=== PATIENT | male | born 1975 | race Caucasian/White ===

== ENCOUNTER → 2016-09-23 | Outpatient (CLI) | payer BC ==
[~2016-09-23] VITALS: Ht 167.6 cm; Wt 72.6 kg
[~2016-09-23] MED LIST: NS 1,000 ML IV SCH; OMEP40CA2 PO
--- NOTE | 2016-09-23 14:57 | ROOR ---
Patient Name: Naif Rodriguez Procedure Date: 09/23/2016 2:41 PM Date of : 1975 Age: 41 Room: [facility] Gender: Male Note Status: Finalized Procedure: Upper GI endoscopy Indications: Dysphagia, Heartburn Providers: Napoleon JOSHI MD Referring MD: [facility] [place] [facility] Provider: Medicines: Monitored Anesthesia Care Complications: No immediate complications. Procedure: Pre-Anesthesia Assessment: - The heart rate, respiratory rate, oxygen saturations, blood pressure, adequacy of pulmonary ventilation, and response to care were monitored throughout the procedure. The Endoscope was introduced through the mouth, and advanced to the second part of duodenum. The upper GI endoscopy was accomplished without difficulty. The patient tolerated the procedure well. Findings: A non-obstructing Schatzki ring (acquired) was found at the gastroesophageal junction. A TTS dilator was passed through the scope. Dilation with an 18-19-20 mm balloon dilator was performed to 19 mm. The dilation site was examined and showed complete resolution of luminal narrowing. This was biopsied with a cold forceps for evaluation of eosinophilic esophagitis. The entire examined stomach was normal. The examined duodenum was normal. Impression: - Esophagus: Non-obstructing Schatzki ring, otherwise normal. Dilated to 19 mm with complete resolution. - Mid esophagus Biopsied for r/o Eosinophilic esophagitis. - Normal stomach. - Normal examined duodenum. Recommendation: - Continue present medications. - Await pathology results. - Telephone endoscopist for pathology results in 2 weeks. - Observe patient's clinical course. Napoleon Joshi MD Napoleon JOSHI MD 09/23/2016 2:57:15 PM This report has been signed electronically. Number of Addenda: 0 Note Initiated On: 09/23/2016 2:41 PM Estimated Blood Loss: Estimated blood loss: none.
[2016-09-23 15:27] VITALS: BP 127/64
== END ==
LOC: M OPP 11:28
PROVIDERS: ATTEND Internal Medicine Gastroenterology
DX: R13.10 Dysphagia, unspecified (principal); R12 Heartburn; K22.2 Esophageal obstruction; Z79.899 Other long term (current) drug therapy

== ENCOUNTER → 2017-05-14 | Outpatient (CLI) | payer BC ==
[~2017-05-14] MED LIST changes: -NS 1,000 ML IV SCH
--- NOTE | 2017-05-15 03:01 | REP ---
Clinical: Chest pain . Comparison: None . Technique: PA and lateral. Findings: The mediastinum and cardiac silhouette are normal. The lung huff are clear and without acute consolidation, effusion, or pneumothorax. The skeletal structures are intact and normal. Impression: 1. No acute cardiopulmonary process. Signed by Rosas Astudillo MD 05/15/2017 02:53 A
== END ==
LOC: M LRY 15:29
PROVIDERS: ATTEND Family Medicine
DX: R07.9 Chest pain, unspecified (principal)

== ENCOUNTER → 2019-03-12 | Outpatient (CLI) | payer BC | LOC: M LAB 15:07 | PROVIDERS: ATTEND Physician Assistant Medical | DX: R19.4 Change in bowel habit (principal); R19.7 Diarrhea, unspecified ==

== ENCOUNTER → 2019-03-22 | Outpatient (REF) | payer BC | LOC: M LAB REF 13:36 | PROVIDERS: ATTEND Physician Assistant Medical | DX: R19.4 Change in bowel habit (principal); R19.7 Diarrhea, unspecified ==

== ENCOUNTER 2019-05-07 06:47 | Day surgery (SDC) | payer BC ==
[~2019-05-07] VITALS: Ht 167.6 cm; Wt 73.0 kg
[~2019-05-07 06:47] MED LIST changes: +FLON1SPR; -OMEP40CA2 PO; +OMEP40CA97 PO
[2019-05-07] MEDS ORDERED: NS 1,000 ML IV ONE (07:00)
[2019-05-07] MEDS ORDERED: LIDOCAINE 2% INJ 100 MG/5 ML SDV (FOR ANES.) As Ordered ONE (07:02)
[2019-05-07] MEDS ORDERED: PROPOFOL 200 MG/20 ML VIAL As Ordered ONE ×2 (07:02→07:39)
--- NOTE | 2019-05-07 07:48 | ROOR ---
Patient Name: Naif Rodriguez Procedure Date: 05/07/2019 7:27 AM Date of : 1975 Age: 43 Room: [facility] Gender: Male Note Status: Finalized Procedure: Colonoscopy Indications: Diarrhea Providers: Napoleon JOSHI MD Referring MD: 1. No Referring Physician 1. No Referring Physician, Admin. Requesting Provider: Medicines: Monitored Anesthesia Care Complications: No immediate complications. Procedure: Pre-Anesthesia Assessment: - The heart rate, respiratory rate, oxygen saturations, blood pressure, adequacy of pulmonary ventilation, and response to care were monitored throughout the procedure. The Colonoscope was introduced through the anus and advanced to 10 cm into the ileum. The colonoscopy was performed without difficulty. The patient tolerated the procedure well. The quality of the bowel preparation was good. Findings: The perianal and digital rectal examinations were normal. The colon (entire examined portion) appeared normal. The terminal ileum appeared normal. Biopsies for histology were taken with a cold forceps from the entire colon for evaluation of microscopic colitis. Impression: - The entire colon is normal. - The examined portion of the ileum was normal. - Biopsies were taken with a cold forceps from the entire colon for evaluation of microscopic colitis. Recommendation: - Telephone endoscopist for pathology results in 2 weeks. - Continue present medications. Napoleon Joshi MD Napoleon JOSHI MD 05/07/2019 7:47:22 AM Electronically signed by Napoleon JOSHI MD Number of Addenda: 0 Note Initiated On: 05/07/2019 7:27 AM Estimated Blood Loss: Estimated blood loss: none.
[2019-05-07 08:05] VITALS: BP 124/74
== END 2019-05-07 08:12 | disposition home or self-care (01) ==
LOC: M OPP 06:47
PROVIDERS: ATTEND Internal Medicine Gastroenterology
DX: R19.7 Diarrhea, unspecified (principal); R19.4 Change in bowel habit; R12 Heartburn; Z79.899 Other long term (current) drug therapy; Z83.3 Family history of diabetes mellitus; Z80.8 Family history of malignant neoplasm of other organs or systems; Z80.3 Family history of malignant neoplasm of breast

== ENCOUNTER 2024-08-03 12:04 | Day surgery (SDC) | payer OTHER ==
[~2024-08-03] VITALS: Ht 167.6 cm; Wt 76.8 kg
[~2024-08-03 12:04] MED LIST changes: +LIDOCAINE 2% 100MG/5ML SDV (FOR ANES.) As Ordered ONE; +OMEP40CA4 PO; -OMEP40CA97 PO; +fentaNYL 100 MCG/2 ML INJECTION As Ordered ONE; +propofoL 200 MG/20 ML VIAL As Ordered ONE
[2024-08-03 14:40] VITALS: BP 125/77; O2SAT 95
== END 2024-08-03 14:44 | disposition home or self-care (01) ==
LOC: M OPP 12:04
PROVIDERS: ATTEND Internal Medicine Gastroenterology
DX: K22.2 Esophageal obstruction (principal); K21.00 Gastro-esophageal reflux disease with esophagitis, without bleeding; R13.14 Dysphagia, pharyngoesophageal phase; Z79.899 Other long term (current) drug therapy
CPT/HCPCS: 43239; 43249; 88305; J3010

== ENCOUNTER → 2025-02-09 | Outpatient (CLI) | payer OTHER ==
[~2025-02-09] MED LIST changes: -LIDOCAINE 2% 100MG/5ML SDV (FOR ANES.) As Ordered ONE; -fentaNYL 100 MCG/2 ML INJECTION As Ordered ONE; -propofoL 200 MG/20 ML VIAL As Ordered ONE
[2025-02-09 13:47] LABS: LDH LACTATE DEHYDROGENASE 158 U/L (120-246)
== END ==
LOC: M LAB 11:59
PROVIDERS: ATTEND Urology
DX: N43.3 Hydrocele, unspecified (principal)

== ENCOUNTER → 2025-03-07 | Outpatient (CLI) | payer OTHER | LOC: M RAD 13:58 | PROVIDERS: ATTEND Urology | DX: N43.3 Hydrocele, unspecified (principal); R93.89 Abnormal findings on diagnostic imaging of other specified body structures ==

== ENCOUNTER → 2025-04-18 | Outpatient (CLI) | payer OTHER ==
[2025-04-18 10:20] LABS: PLATELET COUNT, AUTOMATED 253 10^3/uL (150-450)
[2025-04-18 10:35] LABS: INR 0.86
[2025-04-18 11:08] LABS: ALT/SGPT 37 U/L (7.0-40); AST/SGOT 28 U/L (<34); CALCIUM LEVEL 9.0 MG/DL (8.5-10.1); CARBON DIOXIDE LEVEL 29 MMOL/L (20-31); CHLORIDE LEVEL 101 MMOL/L (98-107); CREATININE FOR GFR 0.87 MG/DL (0.70-1.30); GLOMERULAR FILTRATION RATE > 90.0 (>56); POTASSIUM SERUM 4.1 MMOL/L (3.5-5.1); SODIUM LEVEL 136 MMOL/L (136-145)
== END ==
LOC: M RAD 09:25
PROVIDERS: ATTEND Urology
DX: N50.89 Other specified disorders of the male genital organs (principal)

== ENCOUNTER → 2025-04-29 | Outpatient (REF) | payer OTHER | LOC: M LAB REF 15:16 | PROVIDERS: ATTEND Urology | DX: N50.89 Other specified disorders of the male genital organs (principal) ==

== ENCOUNTER 2025-05-09 08:32 | Day surgery (SDC) | payer OTHER ==
[~2025-05-09] VITALS: Ht 167.6 cm; Wt 76.7 kg
[~2025-05-09 08:32] MED LIST changes: +LIDOCAINE 2% 100 MG/5 ML SDV (FOR ANES.) As Ordered ONE; +ONDANSETRON 4MG/2ML VIAL As Ordered ONE; +dexAMETHasone 4 MG/ML 1 ML VIAL As Ordered ONE
[2025-05-09] MEDS: LR 1,000 ML IV SCH (08:55)
[2025-05-09] MEDS ORDERED: MIDAZOLAM INJ 2 MG/2 ML VIAL As Ordered ONE (09:19)
[2025-05-09] MEDS: ceFAZolin SOD 2 GM IV ONCE IV ONE (11:52)
[2025-05-09] MEDS ORDERED: ACETAMINOPHEN 1000MG/100ML IV BAG As Ordered ONE (11:55)
[2025-05-09] MEDS: LIDOCAINE 2% MDV 20 ML VIAL As Ordered ONE (12:06)
[2025-05-09] MEDS ORDERED: ONDANSETRON 4MG/2ML VIAL IV PRN (12:50)
[2025-05-09] MEDS ORDERED: MORPHINE 4 MG/ML 1 ML VIAL IV PRN (12:50)
[2025-05-09] MEDS ORDERED: CEPH500C PO (13:22)
[2025-05-09] MEDS ORDERED: HYDR-3713 PO (13:22)
[2025-05-09 13:30] VITALS: BP 133/84; TEMP 97.5; O2SAT 98
== END 2025-05-09 13:52 | disposition home or self-care (01) ==
LOC: M SDC 08:32
PROVIDERS: ATTEND Urology
DX: N50.89 Other specified disorders of the male genital organs (principal); K21.9 Gastro-esophageal reflux disease without esophagitis; Z79.899 Other long term (current) drug therapy; Z87.891 Personal history of nicotine dependence
CPT/HCPCS: 54530; 88309; J0131; J0665; J0688; J1100; J2250; J2405; J3010